=== PATIENT | male | born 1955 | race Caucasian/White ===

== ENCOUNTER 2019-10-08 07:39 | Day surgery (SDC) | payer OTHER, BC ==
[2019-10-03 15:48] VITALS: BMI 23.3
[2019-10-08 07:58] VITALS: TEMP 98.1
[2019-10-08 09:24] VITALS: BP 125/74; PULSE 77
--- NOTE | 2019-10-10 15:24 | PATH ---
Surgical Pathology Report Patient Name: ROLLY HOLMAN [facility]. Rec. #: [id number] /Age/Gender: 1955 (Age: 64) / M Account: [id number] Location: [facility] Taken: 10/08/2019 Received: 10/08/2019 Reported: 10/10/2019 Physicians: Param Rebollar M.D. Specimen(s) Received POLYPECTOMY DISTAL SIGMOID COLON Clinical History Screening Postoperative diagnosis: Colon polyp Final Diagnosis DISTAL SIGMOID, POLYP, HOT SNARE POLYPECTOMY: TUBULOVILLOUS ADENOMA. Electronically Signed Elsy Padilla M.D. Gross Description Received in formalin labeled "hot snare polypectomy distal sigmoid," is a 1.6 x 0.7 x 0.5 cm bailey-brown, polypoid portion of soft tissue. The base is inked blue and the specimen is bisected. Separately received within the same container are 2 additional soft tissue fragments measuring 0.2 and 0.7 cm in greatest dimension. The specimens are submitted entirely in 2 cassettes as follows: 1-one bisected polyp; 2-separately received soft tissue fragments. 10/09/2019 saudi10/09/2019
== END 2019-10-08 09:25 | disposition home or self-care (01) ==
LOC: FASU-ENDO 07:39
PROVIDERS: ATTEND Internal Medicine Gastroenterology
PROC: 0DBN8ZX Excision of Sigmoid Colon, Via Natural or Artificial Opening Endoscopic, Diagnostic (ICD-10-PCS; principal; 2019-10-08 08:25)
DX: Z12.11 Encounter for screening for malignant neoplasm of colon (principal); D12.5 Benign neoplasm of sigmoid colon
CPT/HCPCS: 88305-TC